=== PATIENT | female | born 1985 | race Caucasian/White ===

== ENCOUNTER 2018-07-16 15:24 | Inpatient (IN) | payer MEDICAID, SELFPAY ==
[2018-07-16 16:43] LABS: HCT 37.8 % (36.0-46.0); HGB 12.8 g/dL (12.0-15.5); Mean Corp. HGB Concentration 33.9 g/dL (32.0-36.0); Mean Corpuscular Hemoglobin 30.1 pg (27.0-33.0); Mean Corpuscular Volume 88.9 fL (80-95); Mean Platelet Volume 11.9 fL (8.0-11.0); Platelet Count 188 x1000/uL (130-400); RBC 4.25 m/cumm (4.00-5.20); RBC Distribution Width 15.9 % (11.7-14.6); White Blood Cell Count 15.18 k/cumm (4.4-10.8)
[2018-07-17] MEDS: Lactated Ringers 1,000 ML 125 ML IV (06:43)
[2018-07-17] MEDS: fentaNYL 100 MCG/2 ML VIAL EP (14:15)
--- NOTE | 2018-07-17 20:19 | ANES_ITS ---
Epidural Catheter Removal: Called to remove post epidural. Pt. has been ambulatory, no numbness/ tingling in extremities. No headache and full motor strength. No back pain. Site is not red. Epidural catheter removed with ease and tip was intact at 2014. No drainage noted. Advised patient if any concerns, contact nurse who will call anesthesia.
[2018-07-18] MEDS: Ferrous Sulfate 325 MG TAB PO (12:40)
[2018-07-18] MEDS: Acetaminophen 325 MG TAB 650 MG PO (12:40)
[2018-07-19] MEDS: Ibuprofen 600 MG TAB PO ×2 (00:55→07:50)
[2018-07-19] MEDS: Prenatal Multivitamin w/CA,FE TAB 1 TAB PO (07:49)
[2018-07-19] MEDS: Ferrous Sulfate 325 MG TAB PO (07:49)
== END 2018-07-19 09:50 | disposition home or self-care (01) | DRG 807 ==
PROVIDERS: Admitting Provider Family Medicine; PCP Family Medicine; Visit Provider Family Medicine
DX: O48.0 Post-term pregnancy (principal); Z37.0 Single live birth; Z3A.40 40 weeks gestation of pregnancy; O76 Abnormality in fetal heart rate and rhythm complicating labor and delivery; O69.1XX0 Labor and delivery complicated by cord around neck, with compression, not applicable or unspecified; O92.03 Retracted nipple associated with lactation
CPT/HCPCS: 36415; 85027; 86850; 86900; 86901; 59200; J3010; J3490